=== PATIENT | male | born 1965 | race American Indian/Alaskan Native ===

== ENCOUNTER 2018-10-09 09:51 | Outpatient (CLI) | payer OTHER ==
--- NOTE | 2018-10-09 10:42 | XRay Report ---
AP AND LATERAL LUMBOSACRAL SPINE: History: B-cell lymphoma, back pain. Mild disc space narrowing is identified at L4-5. Moderate to severe disc space narrowing with vacuum phenomenon is identified at L5-S1. The remaining disc levels are within normal limits. There is mild to moderate diffuse facet arthropathy. No evidence for compression deformity or subluxation. L1 vertebral body appears diffusely sclerotic compared to the surrounding vertebra. This may represent lymphomatous involvement. No pathologic fracture. The sacrum is intact. Mild osteoarthritic changes are noted at the SI joints. IMPRESSION: Lumbar spondylosis as described. L5-S1 is the most affected level. Slightly sclerotic appearance of L1, see above.
== END 2018-10-09 09:52 | disposition home or self-care (01) ==
LOC: XRAY 09:51
PROVIDERS: ATTEND Internal Medicine
DX: M47.897 Other spondylosis, lumbosacral region (principal); C85.10 Unspecified B-cell lymphoma, unspecified site
CPT/HCPCS: 72100